=== PATIENT | female | born 2000 | race Caucasian/White ===

== ENCOUNTER 2025-04-12 14:43 | Emergency (ER) | payer OTHER ==
[~2025-04-12] VITALS: Ht 170.2 cm; Wt 97.5 kg
[2025-04-12] MEDS ORDERED: TETRAcaine 5 ML BOTTLE ONE (16:09)
[2025-04-12] MEDS ORDERED: ACETAMINOPHEN ES 500 MG TABLET ONE (16:09)
[2025-04-12] MEDS ORDERED: IBUPROFEN 600 MG TABLET ONE (16:09)
[2025-04-12] MEDS: IV NS 0.9% 1,000 ML BAG IV ONE (16:15)
[2025-04-12] MEDS: IBUPROFEN 600 MG TABLET PO ONE (16:19)
[2025-04-12] MEDS: ACETAMINOPHEN ES 500 MG TABLET PO ONE (16:19)
[2025-04-12] MEDS: TETRACAINE HCL 0.5% OPHTALMIC 15 ML BOTTLE OP ONE (16:20)
[2025-04-12] MEDS ORDERED: ONDANSETRON HCL/PF 4 MG/2 ML VIAL ONE (16:21)
[2025-04-12] MEDS: ONDANSETRON HCL/PF 4 MG/2 ML VIAL IV ONE (16:23)
[2025-04-12] MEDS ORDERED: ONDA4TAB5 PO (16:38)
[2025-04-12] MEDS ORDERED: FLUT16SP BNOSTRILS (16:38)
[2025-04-12] MEDS ORDERED: IBUP-1490 PO (16:38)
[2025-04-12 17:13] VITALS: BP 150/81; TEMP 98.5; O2SAT 100
== END 2025-04-12 17:13 | disposition home or self-care (01) ==
LOC: ER 14:49
DX: R10.9 Unspecified abdominal pain (principal); J45.909 Unspecified asthma, uncomplicated
CPT/HCPCS: 99283; 96374; 96361; J2405; J7030